=== PATIENT | male | born 1990 | race Caucasian/White ===

== ENCOUNTER 2022-11-19 11:07 | Emergency (ER) | payer BC, OTHER ==
[2022-11-19 11:22] VITALS: TEMP 98.9
[2022-11-19] MEDS ORDERED: KETOROLAC 15 MG/ML 1 ML VIAL IVP STA (11:33)
[2022-11-19] MEDS ORDERED: LIDOCAINE 5% PATCH TOPICAL ONE (11:33)
[2022-11-19] MEDS ORDERED: DEXAMETHASONE SOD PHOSPHATE 10 MG/ML 1 ML VIAL IVP STA (11:33)
[2022-11-19] MEDS ORDERED: ORPHENADRINE 30 MG/ML 2 ML VIAL IVP STA (11:33)
--- NOTE | 2022-11-19 11:38 | ED ---
Back Pain HPI - General Chief Complaint: Back Pain/Injury Stated Complaint: back pain Time Seen by Provider: 11/19/22 11:23 Source: patient, RN notes reviewed Mode of arrival: ambulatory Limitations: no limitations - History of Present Illness Initial Comments: This is a 32-year-old male who presents to the emergency department for back pain. Patient states that he's been dealing with back pain for several months. He works as a truck trailer mechanic, and has been working more hours than usual. Believes that being in that position for a prolonged period of time is contributing to this. Yesterday the pain became much worse and started to radiate down the leg. He went to urgent care and was given prescriptions for Robaxin, naproxen, and prednisone. States that he has not had any improvement with the medication whatsoever. Denies any loss of bowel/bladder control or saddle anesthesia. Denies any fevers, chills, sore throat, cough, dyspnea, chest pain, palpitations, abdominal pain, nausea, vomiting, diarrhea, or headaches. MD Complaint: back pain - Related Data Previous Rx's Medication Instructions Recorded Ketorolac [Toradol] 10 mg PO Q6HR PRN #15 tab 11/19/22 Lidocaine 5% Patch [Lidoderm 5% 1 patch TOPICAL DAILY PRN #30 patch 11/19/22 Patch] Allergies Allergy/AdvReac Type Severity Reaction Status Date / Time No Known Allergies Allergy Verified 11/19/22 11:18 Review of Systems ROS Statement: Those systems with pertinent positive or pertinent negative responses have been documented in the HPI. ROS Other: All systems not noted in ROS Statement are negative. Past Medical History Past Medical History: No Reported History History of Any Multi-Drug Resistant Organisms: None Reported Past Surgical History: No Surgical Hx Reported Past Psychological History: No Psychological Hx Reported Smoking Status: Current some day smoker Past Alcohol Use History: Occasional Past Drug Use History: None Reported General Exam Limitations: no limitations General appearance: alert, in no apparent distress Head exam: Present: atraumatic, normocephalic, normal inspection Respiratory exam: Present: normal lung sounds bilaterally. Absent: respiratory distress, wheezes, rales, rhonchi, stridor Cardiovascular Exam: Present: regular rate, normal rhythm, normal heart sounds. Absent: systolic murmur, diastolic murmur, rubs, gallop, clicks Back exam: Present: normal inspection. Absent: tenderness Neurological exam: Present: alert, oriented X3, CN II-XII intact Psychiatric exam: Present: normal affect, normal mood Skin exam: Present: warm, dry, intact, normal color. Absent: rash Course Vital Signs 11/19/22 11/19/22 11/19/22 11:19 11:22 12:41 Temperature 98.9 F Pulse Rate 97 85 68 Respiratory 18 16 16 Rate Blood Pressure 134/85 130/65 136/68 O2 Sat by Pulse 97 98 98 Oximetry Medical Decision Making - Medical Decision Making This is a 32-year-old male who presents to the emergency department for back pain. Was pt. sent in by a medical professional or institution? @ -No Did you speak to anyone other than the patient for history? @ -No Did you review nursing and triage notes? @ -Yes, and I agree, it is accurate with regards to the patient's symptoms. Were old charts reviewed? @ -No Differential Diagnosis? @ -Differential Back Pain: Strain, zoster, cauda equina syndrome, epidural abscess, vertebral osteomyelitis, discitis, fracture, subluxation, disc herniation, DJD, spinal st enosis, dissection, AAA, pancreatitis, peptic ulcer disease, pyelonephritis, kidney stone, this is not meant to be an all-inclusive list. EKG interpreted by me (3pts min.)? @ -Not obtained X-rays interpreted by me (1pt min.)? @ -X-ray of the lumbar spine obtained. My interpretation identifies no acute fractures. CT interpreted by me (1pt min.)? @ -Not obtained U/S interpreted by me (1pt. min.)? @ -Not obtained What testing was considered but not performed? (CT, X-rays, U/S, labs)? Why? @ -None What meds were considered but not given? Why? @ -None Did you discuss the management of the patient with other professionals? @ -No Did you reconcile home meds? @ -No Was smoking cessation discussed for >3mins.? @ -No Was critical care preformed (if so, how long)? @ -No Were there social determinants of health that impacted care today? How? (Homelessness, low income, unemployed, alcoholism, drug addiction, transportation, low edu. Level, literacy, decrease access to med. care, penitentiary, rehab)? @ -No Was there de-escalation of care discussed even if they declined? (Discuss DNR or withdrawal of care, Hospice)? @ -No What co-morbidities impacted this encounter? (DM, HTN, Smoking, COPD, CAD, Cancer, CVA, Hep., AIDS, mental health diagnosis, sleep apnea, morbid obesity)? @ -Morbid obesity Was patient admitted / discharged? @ -Discharged. X-ray of the lumbar spine obtained revealing no acute process. Symptoms most consistent with a sciatica or lumbar radiculopathy. He was given a dose of Decadron, Toradol, and Norflex in the emergency department and a lidocaine patch was applied. He had significant relief in symptoms afterwards. Prescriptions for Toradol and lidocaine patches provided with dosing instructions reviewed. Advised to discontinue the naproxen and instead take the Toradol. He will continue taking the prednisone and I advised that he can take the Robaxin as 1-2 tablets at a time if needed. Otherwise advised he avoid any excess lifting or bending and follow up with his primary care provider for reevaluation. Undiagnosed new problem with uncertain prognosis? @ -None Drug Therapy requiring intensive monitoring for toxicity (Heparin, Nitro, Insulin, Cardizem)? @ -None Were any procedures done? @ -None Diagnosis/symptom? @ -Lumbar radiculopathy Acute, or Chronic, or Acute on Chronic? @ -Acute Uncomplicated (without systemic symptoms) or Complicated (systemic symptoms)? @ -Uncomplicated Side effects of treatment? @ -None Exacerbation, Progression, or Severe Exacerbation] @ -Not applicable Poses a threat to life or bodily function? @ -No Return precautions reviewed in depth, the patient is instructed to return to the emergency department with any new, worsening, or concerning symptoms. Patient verbalized understanding. This case was discussed in detail with the attending ED physician, Dr. Mann. Presentation, findings, and treatment plan discussed in detail as well. - Radiology Data Radiology results: report reviewed, image reviewed Disposition Clinical Impression: Lumbar radiculopathy Disposition: HOME SELF-CARE Instructions (If sedation given, give patient instructions): Sciatica (ED), Lumbar Radiculopathy (ED) Additional Instructions: Return to the emergency department with any new, worsening, or concerning symptoms. Stop taking the naproxen and start taking the Toradol up to every 6 hours as needed for pain relief. Do not take this with any other anti- inflammatories such as ibuprofen either. You may supplement this with Tylenol. Continue taking the prednisone. You may take 1-2 tablets of the muscle relaxant up to 4 times daily. Be aware that this may make you drowsy. You can apply the lidocaine patches daily as well. Follow up with your primary care provider in 1-2 days. Prescriptions: Lidocaine 5% Patch [Lidoderm 5% Patch] 1 patch TOPICAL DAILY PRN #30 patch PRN Reason: Pain Ketorolac [Toradol] 10 mg PO Q6HR PRN #15 tab PRN Reason: Pain Is patient prescribed a controlled substance at d/c from ED?: No Referrals: None,Stated [Primary Care Provider] - 1-2 days
--- NOTE | 2022-11-19 11:52 | XR ---
EXAMINATION TYPE: XR lumbar spine 2 or 3V DATE OF EXAM: 11/19/2022 COMPARISON: None HISTORY: Back pain TECHNIQUE: 3 view lumbar spine FINDINGS: There are 5 lumbar-type vertebral bodies. Pedicles are intact. Disc heights are preserved. Vertebral body heights are preserved. Alignment normal. IMPRESSIONS: 1. Normal three-view lumbar spine
[2022-11-19 12:03] VITALS: RESP 16
[2022-11-19] MEDS ORDERED: ACET/COD 300 MG/30 MG STARTER PACK 6 TAB BTL PO STA (12:26)
[2022-11-19 12:42] VITALS: BP 136/68; PULSE 68
== END 2022-11-19 12:46 | disposition home or self-care (01) ==
LOC: EC 11:07
DX: M54.16 Radiculopathy, lumbar region (principal); F17.200 Nicotine dependence, unspecified, uncomplicated
CPT/HCPCS: 72100; 99283; 96374; 96375 ×2; J1100; J2360; J1885

== ENCOUNTER 2023-10-24 13:44 | Emergency (ER) | payer BC, OTHER ==
[2023-10-24 13:50] VITALS: BP 167/110; PULSE 111; TEMP 98.2
--- NOTE | 2023-10-24 13:55 | ED ---
Fall HPI - General Chief Complaint: Fall Stated Complaint: fall, [facility] Time Seen by Provider: 10/24/23 13:54 Source: patient, RN notes reviewed Mode of arrival: ambulatory Limitations: no limitations - History of Present Illness Initial Comments: 33-year-old male presented to the ER with a chief complaint of a fall. Patient states he accidentally tripped landing on his left side and slid down approximately 10 steps. He is reporting left-sided rib pain with mild shortness of breath and states this is painful to take a deep breath. He also is reportin g right knee pain. Denies any paresthesias. Patient denies any head injury, loss of consciousness or blood thinner use. He denies any dizziness, lightheadedness, chest pain or shortness of breath prior to fall. - Related Data Previous Rx's Medication Instructions Recorded Ketorolac [Toradol] 10 mg PO Q6HR PRN #15 tab 11/19/22 Lidocaine 5% Patch [Lidoderm 5% 1 patch TOPICAL DAILY PRN #30 patch 11/19/22 Patch] Lidocaine 5% Patch [Lidoderm] 1 patch TOPICAL DAILY #30 patch 10/24/23 Allergies Allergy/AdvReac Type Severity Reaction Status Date / Time No Known Allergies Allergy Verified 10/24/23 13:50 Review of Systems ROS Statement: Those systems with pertinent positive or pertinent negative responses have been documented in the HPI. ROS Other: All systems not noted in ROS Statement are negative. Past Medical History Past Medical History: No Reported History History of Any Multi-Drug Resistant Organisms: None Reported Past Surgical History: No Surgical Hx Reported Past Psychological History: No Psychological Hx Reported Smoking Status: Current some day smoker Past Alcohol Use History: Occasional Past Drug Use History: None Reported General Exam - General Exam Comments Initial Comments: Visual Physical Exam Vital signs reviewed General: Well-appearing, nontoxic, no acute distress. Head: Normocephalic, atraumatic Eyes: PERRLA, EOMI ENT: Airway patent Chest: Nonlabored breathing Skin: No visual rash, normal skin tone Neuro: Alert and oriented 3 Musculoskeletal: No gross abnormalities Limitations: no limitations General appearance: alert, in no apparent distress Head exam: Present: atraumatic, normocephalic, normal inspection Neck exam: Present: normal inspection. Absent: tenderness, meningismus, lymphadenopathy Respiratory exam: Present: normal lung sounds bilaterally. Absent: respiratory distress, wheezes, rales, rhonchi, stridor Cardiovascular Exam: Present: regular rate, normal rhythm, normal heart sounds. Absent: systolic murmur, diastolic murmur, rubs, gallop, clicks GI/Abdominal exam: Present: soft, normal bowel sounds. Absent: distended, tenderness, guarding, rebound, rigid Extremities exam: Present: normal inspection, full ROM, normal capillary refill. Absent: tenderness, pedal edema, joint swelling, calf tenderness Skin exam: Present: warm, dry, intact, normal color. Absent: rash Course Vital Signs 10/24/23 10/24/23 13:45 15:35 Temperature 98.2 F Pulse Rate 111 H Respiratory 16 17 Rate Blood Pressure 167/110 O2 Sat by Pulse 97 Oximetry Medical Decision Making - Medical Decision Making I performed the quick note portion of this chart. Electronically signed by Zhang Amador PA-C Was pt. sent in by a medical professional or institution (MANISHA Mitchell, CLIENT EXPERIENCE CONSULTANT, urgent care, hospital, or usp...) When possible be specific @ -No Did you speak to anyone other than the patient for history (EMS, parent, family, police, friend...)? What history was obtained from this source @ -No Did you review nursing and triage notes (agree or disagree)? Why? @ -I reviewed and agree with nursing and triage notes Were old charts reviewed (outside hosp., previous admission, EMS record, old EKG, old radiological studies, urgent care reports/EKG's, usp records)? Report findings @ -No old charts were reviewed Differential Diagnosis (chest pain, altered mental status, abdominal pain women, abdominal pain men, vaginal bleeding, weakness, fever, dyspnea, syncope, headac he, dizziness, GI bleed, back pain, seizure, CVA, palpatations, mental health, musculoskeletal)? @ -Differential Musculoskeletal: Muscular strain, contusion, ligament sprain, fracture, arthritis, septic arthritis, bursitis, cellulitis, muscle spasm, nerve compression, DVT, arterial occlusion, herpes zoster, electrolyte abnormality, tumor.... This is not meant to be in all inclusive list EKG interpreted by me (3pts min.). @ -None X-rays interpreted by me (1pt min.). @ -Right knee x-rays interpreted by me negative for acute process. Left ribs AP chest x-rays interpreted by me negative for acute process. CT interpreted by me (1pt min.). @ -None done U/S interpreted by me (1pt. min.). @ -None done What testing was considered but not performed or refused? (CT, X-rays, U/S, labs)? Why? @ -None What meds were considered but not given or refused? Why? @ -None Did you discuss the management of the patient with other professionals (professionals i.e. , PA, CLIENT EXPERIENCE CONSULTANT, lab, RT, psych nurse, social work msw, business development coordinator, teacher, family preservation officer, nurse case manager)? Give summary @ -No Was smoking cessation discussed for >3mins.? @ -No Was critical care preformed (if so, how long)? @ -No Were there social determinants of health that impacted care today? How? (Homelessness, low income, unemployed, alcoholism, drug addiction, transportation, low edu. Level, literacy, decrease access to med. care, fdc, rehab)? @ -No Was there de-escalation of care discussed even if they declined (Discuss DNR or withdrawal of care, Hospice)? DNR status @ -No What co-morbidities impacted this encounter? (DM, HTN, Smoking, COPD, CAD, Cancer, CVA, ARF, Chemo, Hep., AIDS, mental health diagnosis, sleep apnea, morbid obesity)? @ -Obese Was patient admitted / discharged? Hospital course, mention meds given and route, prescriptions, significant lab abnormalities, going to OR and other pertinent info. @ -Discharge. 33-year-old male presented to ER with a chief complaint of a fall. History and physical exam completed. Patient denied head injury. Vitals stable. Patient in no significant distress and nontoxic-appearing. Tenderness to palpation of left ribs. No evidence of flail chest. No bruising, erythema or wounds present. Bilateral upper and lower extremities neurovascularly intact. X-rays obtained negative for acute process. Upon reevaluation, patient resting comfortably in exam room in no signs of acute distress. Results discussed with patient, all questions answered. Incentive spirometer given. Lidocaine patches prescribed, first placed in the ER. I advised close follow-up with PCP. I also suggested [id number] Tylenol and Motrin for pain control. Return parameters discussed. Patient discharged stable condition. Patient verbally expressed understanding and agreement with care plan. Case discussed with ED attending, Dr. Mann. Undiagnosed new problem with uncertain prognosis? @ -No Drug Therapy requiring intensive monitoring for toxicity (Heparin, Nitro, Insulin, Cardizem)? @ -No Were any procedures done? @ -No Diagnosis/symptom? @ -Rib contusion/knee contusion Acute, or Chronic, or Acute on Chronic? @ -Acute Uncomplicated (without systemic symptoms) or Complicated (systemic symptoms)? @ -Uncomplicated Side effects of treatment? @ -No Exacerbation, Progression, or Severe Exacerbation? @ -No Poses a threat to life or bodily function? How? (Chest pain, [place], CA, pneumonia, PE, COPD, DKA, ARF, appy, cholecystitis, CVA, Diverticulitis, Homicidal, Suicidal, threat to staff... and all critical care pts) @ -No - Radiology Data Radiology results: report reviewed, image reviewed Disposition Clinical Impression: Contusion of rib on left side, Fall, Contusion, knee Disposition: HOME SELF-CARE Condition: Stable Instructions (If sedation given, give patient instructions): How to Use an Incentive Spirometer (ED), Rib Contusion (ED) Additional Instructions: You may take [id number] Tylenol and Motrin for pain control. Follow-up with PCP. Use incentive spirometer every hour. I encourage you to take deep breaths. Return to the ER for any new or worsening concerns. Prescriptions: Lidocaine 5% Patch [Lidoderm] 1 patch TOPICAL DAILY #30 patch Is patient prescribed a controlled substance at d/c from ED?: No Referrals: None,Stated [Primary Care Provider] - 1-2 days Time of Disposition: 15:28
--- NOTE | 2023-10-24 14:55 | XR ---
EXAMINATION TYPE: XR ribs LT w pa chest xray DATE OF EXAM: 10/24/2023 COMPARISON: None HISTORY: Left rib pain, fall TECHNIQUE: AP chest supplemented with 2 views left RIBS FINDINGS: Heart size is normal. Pulmonary vasculature is normal. Lungs are clear. No pneumothorax is evident. No displaced rib fractures are identified. Follow-up can be performed as clinically indicated. IMPRESSION: 1. No acute osseous abnormality left RIBS
--- NOTE | 2023-10-24 14:57 | XR ---
EXAMINATION TYPE: XR knee complete RT DATE OF EXAM: 10/24/2023 COMPARISON: None HISTORY: Fall, pain TECHNIQUE: 3 view right knee FINDINGS: Joint spaces are preserved. No acute fracture or dislocation is evident. No joint effusion is evident. Follow up exams can be performed 7-10 days from acute trauma for continued pain. IMPRESSION: 1. No acute osseous abnormality right knee
[2023-10-24] MEDS: LIDOCAINE 4% PATCH TOPICAL ONE (15:34)
[2023-10-24 15:38] VITALS: RESP 17
== END 2023-10-24 15:39 | disposition home or self-care (01) ==
LOC: EC 13:44
DX: S20.212A Contusion of left front wall of thorax, initial encounter (principal); S80.01XA Contusion of right knee, initial encounter; E66.9 Obesity, unspecified; F17.200 Nicotine dependence, unspecified, uncomplicated; Z68.41 Body mass index [BMI] 40.0-44.9, adult; W10.9XXA Fall (on) (from) unspecified stairs and steps, initial encounter
CPT/HCPCS: 99283